=== PATIENT | male | born 1985 | race Caucasian/White ===

== ENCOUNTER 2017-04-20 08:27 | Day surgery (SDC) | payer BC ==
[~2017-04-20 08:27] MED LIST: RINGERS SOLUTION,LACTATED 1,000 ML IV PRN
--- OUTSIDE RECORDS SUMMARY | 2017-04-20 08:31 | XMS REPORT | Continuity of Care Document ---
:1985 Author Organization [facility] [place] [address] Care Team Providers Name Role Phone Unavailable Primary Care Provider Unavailable Source Comments This disclosure is being made pursuant to the [employer] program and maynot contain all information available regarding this patient.[facility] Active Allergies and Adverse Reactions Not on File Current Medications Be aware that medications may not be up to date as of this document. Alwaysverify current medications with the patient. Not on file Active Problems Not on file Social History Tobacco Use Types Packs/Day Years Used Date Never Assessed Plan of Care Health Maintenance Due Date Last Done Comments Retired-Pertussis Vaccine Adult 2004 Retired-Tetanus Vaccine Adult 2004 Retired-INFLUENZA VACCINE 06/15/2015 Results from Last 3 Months Not on file
--- OUTSIDE RECORDS SUMMARY | 2017-04-20 08:32 | XMS REPORT | Summary of Care ---
:1985 Author Organization [facility] Address [address] [place] [address] Care Team Providers Name Role Phone Physician, Primary Care Primary Care Physician Unavailable Encounter Date(s): 03/20/16 - 03/20/16 [facility], [address] [place], [place] [address] [place] Discharge Diagnosis: Encounter for other general counseling and advice on contraception Discharge Disposition: 01 Discharged to Home or Self Care Attending Physician: Edison Reese MD Referring Physician: Edison Reese MD Vital Signs Most recent to oldest [Reference Range]: 1 Peripheral Pulse Rate [60-100 bpm] 71 bpm (03/20/16 9:40 AM) Blood Pressure [90-130/60-90 mmHg] 162/83mmHg *HI* (03/20/16 9:40 AM) Mean Arterial Pressure, Cuff 109 mmHg (03/20/16 9:40 AM) Most recent to oldest [Reference Range]: 1 Height/Length Measured 205.7 cm (03/20/16 9:40 AM) Weight Dosing 140.00 kg1 (03/20/16 9:41 AM) Weight Measured 140 kg (03/20/16 9:40 AM) BSA Measured 2.79 m2 (03/20/16 9:40 AM) Body Mass Index Measured 33.09 kg/m2 (03/20/16 9:40 AM) 1Result Comment: This result was because the dosing weight was either not entered or it is>30 days old. This result is based off: Weight Measured March 20, 2016 09:40:00 CDT by Anastasia Tristan, Fund Development Manager Problem List No data available for this section Allergies, Adverse Reactions, Alerts No Known Medication Allergies Medications cephalexin 500 mg oral capsule 1 cap(s), Oral, QID, # 20 cap(s), 0 Refill(s), Start Date: 03/30/16 19:06:00 CDT Start Date: 03/30/16 Stop Date: 04/04/16 Status: Orderedclindamycin 300 mg oral capsule 1 cap(s), Oral, q8hr interval, # 15 cap(s), 0 Refill(s), Start Date: 03/30/16 18 :57:00 CDT Start Date: 03/30/16 Stop Date: 04/04/16 Status: OrderedHYDROcodone-acetaminophen 5 mg-325 mg oral tablet 1 tab(s), Oral, q6hr, # 30 tab(s), 0 Refill(s), Start Date: 03/20/16 9:57:00 CDT Start Date: 03/20/16 Status: OrderedKeflex 500 mg oral capsule 1 cap(s), Oral, TID, # 9 cap(s), 0 Refill(s), Start Date: 03/20/16 9:57:00 CDT Start Date: 03/20/16 Stop Date: 03/23/16 Status: Orderedsulfamethoxazole-trimethoprim 800 mg-160 mg oral tablet 1 tab(s), Oral, BID, X 5 days, # 10 tab(s), 0 Refill(s), Start Date: 03/30/16 18 :57:00 CDT Start Date: 03/30/16 Stop Date: 03/30/16 Status: Discontinued Results No data available for this section Immunizations No data available for this section Procedures Procedure Date Related Diagnosis Body Site Appendectomy 2011 ACL - Reconstruction of anterior cruciate 09/2008 ligament1 1Left Social History No data available for this section Assessment and Plan No data available for this section
[2017-04-20] MEDS ORDERED: RINGERS SOLUTION,LACTATED 1,000 ML IV ONE (08:54)
--- NOTE | 2017-04-20 10:21 | OR ---
Operative Report - Dictated Report Narrative: Date: 04/20/2017 Preop diagnosis: GERD Postop diagnosis: Small hiatal hernia, mild bailon's esophagus, gastritis Procedure: Esophagogastroduodenoscopy with biopsy x 2 Surgeon: Durga Fuentes MD Proctoring surgeon: Luca Arevalo MD Anesthesia: MAC per QUALITY ASSURANCE CLERK EBL: minimal Description: After informed consent a bite block was inserted and IV sedation was administered per QUALITY ASSURANCE CLERK. Flexible video endoscope was inserted through the bite block, through the posterior pharynx and into the esophagus under direct vision. The scope was then advanced through the esophagus, stomach and into the duodenum. The duodenum was grossly normal without ulceration. The scope was withdrawn into the stomach. There was mild gastritis. No ulcers were noted. Biopsy of the antrum x 2 for CLOtest and anatomic pathology. The body of the stomach was inspected and showed mild gastritis. Retroflexion of the scope within the stomach revealed a small hiatal hernia. Endoscope was withdrawn into the stomach revealing mild bailon's esophagus. Remainder of the esophagus was unremarkable. The patient tolerated the procedure well and was discharged from the endoscopy suite in stable condition. RECOMMENDATIONS: Continue acid suppression. Repeat EGD will be PRN
[2017-04-20 11:08] VITALS: BP 138/78
== END 2017-04-20 08:28 | disposition home or self-care (01) ==
LOC: AMB 08:27
PROVIDERS: ATTEND Specialist
PROC: 0DB68ZX Excision of Stomach, Via Natural or Artificial Opening Endoscopic, Diagnostic (ICD-10-PCS; principal; 2017-04-20 09:30)
DX: K21.9 Gastro-esophageal reflux disease without esophagitis (principal); K29.70 Gastritis, unspecified, without bleeding; K44.9 Diaphragmatic hernia without obstruction or gangrene; K22.70 Barrett's esophagus without dysplasia; Z68.33 Body mass index [BMI] 33.0-33.9, adult